=== PATIENT | female | born 1985 | race Caucasian/White ===

== ENCOUNTER 2018-02-18 01:31 | Emergency (ER) | payer OTHER ==
[~2018-02-18] VITALS: Ht 175.3 cm; Wt 63.5 kg
[2018-02-18 01:50] VITALS: BP_SYST 157
--- NOTE | 2018-02-18 01:50 | NUR ---
Patient to ER bed 03 to gown for evaluation. Side rails up. Will assume care
[2018-02-18] MEDS ORDERED: CLINDAMYCIN PHOSPHATE 300 MG/2 ML VIAL IM ONE (02:00)
[2018-02-18] MEDS ORDERED: SULFAMETHOXAZOLE/TRIMETHOPR DS 1 TABLET PO ONE (02:00)
[2018-02-18] MEDS ORDERED: IBUPROFEN 800 MG TABLET PO ONE (02:00)
--- NOTE | 2018-02-18 02:00 | NUR ---
ER Dr. Guthrie at bedside examining patient.
--- NOTE | 2018-02-18 02:01 | NUR ---
Patient brought in complaining of multiple facial abscesses since yesterday. She reports sleeping in her car and used her dog's bed as a pillow. She reports her dog is infected with mites. No other complaints/injuries per patient or as noted. Will continue to monitor. Addendum: 02/18/18 at 0218 by [email or web address] 2 cm fluctuant and tender mass to the left chin. Small area of erythema and induration to the right forehead.
--- NOTE | 2018-02-18 02:13 | NUR ---
I & D set up at bedside. notified
[2018-02-18] MEDS ORDERED: LIDOCAINE 2%, 20 ML MDV INJ ONE (02:15)
--- NOTE | 2018-02-18 02:18 | NUR ---
I&D Procedure done by Dr Cleveland lo using sterile technique. Lidocaine 2% used. Minimal amt of bleeding noted. Wound care discussed w/ patient. Pt tolerated procedure well.
--- NOTE | 2018-02-18 03:20 | NUR ---
Patient given written and verbal discharge instructions and verbalizes understanding. ER MD discussed with patient the results and treatment provided. Patient in stable condition. ID arm band removed. Rx of Bactrim and Motrin given. Patient educated on pain management and to follow up with PMD. Pain Scale 2/10. Opportunity for questions provided and answered. Medication side effect fact sheet provided.
[2018-02-18 03:25] VITALS: BP_SYST 157
== END 2018-02-18 03:25 | disposition home or self-care (01) ==
LOC: SED 01:31
DX: L02.01 Cutaneous abscess of face (principal); Z88.1 Allergy status to other antibiotic agents
CPT/HCPCS: 10060; 96372; 99283; J2001; J3490

== ENCOUNTER 2018-02-20 19:52 | Emergency (ER) | payer OTHER ==
[~2018-02-20] VITALS: Ht 175.3 cm; Wt 61.2 kg
[2018-02-20 20:03] VITALS: BP_SYST 140; BP_SYST 153
--- NOTE | 2018-02-20 20:04 | NUR ---
Patient triaged and placed in waiting room. VSS and patient appears in no acute distress at this time. Accompanied by dog, awaiting available bed, and MD notified of need for MSE.
--- NOTE | 2018-02-20 20:08 | NUR ---
PT REFUSES TO GIVE URINE SAMPLE. STATES - "IT FEELS LIKE RAZOR BLADES. YOU PEOPLE DON'T UNDERSTAND. I JUST WANT ANOTHER PRESCRIPTION BECAUSE I'M ALLERGIC TO THIS ONE. I CAN'T PEE. WHAT'S WRONG WITH YOU PEOPLE?"
--- NOTE | 2018-02-20 20:10 | NUR ---
Dr. Kramer notifed. Per Dr. Kramer, she cannot be prescribed any new medication without a urine sample. Pt informed and refuses to give urine sample.
--- NOTE | 2018-02-20 20:31 | NUR ---
Pt was informed in order for us to give her medication, she must provide a urine sample. Pt refused and yelled "You are going to get sued, you fucking idiot! I'm not going to give a urine sample!" Pt left ED waiting room without being seen.
== END 2018-02-20 20:30 | disposition left against medical advice (07) ==
LOC: SED 19:52
DX: R31.9 Hematuria, unspecified (principal); R30.0 Dysuria; R35.0 Frequency of micturition; Z53.21 Procedure and treatment not carried out due to patient leaving prior to being seen by health care provider